=== PATIENT | female | born 1990 | race Caucasian/White ===

== ENCOUNTER 2018-01-26 15:28 | Emergency (ER) | payer OTHER, MEDICAID, SELFPAY ==
[2018-01-26 15:29] VITALS: BP 112/67; PULSE 97; RESP 20; TEMP 36.1; O2SAT 97; BMI 24.4
--- NOTE | 2018-01-26 16:02 | ED.BACK ---
HPI - Back Pain/Injury <SYDNIE Calixto - Last Filed: 01/26/18 22:29> General Chief Complaint: Back Pain/Injury Stated Complaint: RIGHT SIDE PAIN Time Seen by Provider: 01/26/18 15:36 Source: patient Mode of arrival: ambulatory Limitations: no limitations History of Present Illness HPI Narrative: Healthy 27-year-old female that is a nonsmoker here for complaint of having pain into her right ribcage area over the past several days. She was seen at [facility] emergency room a few days ago with a negative workup That included ultrasound to the right upper quadrant. She reports she is still having pain into the area. Positive p.o. intake. No nausea vomiting. No urinary symptoms. No fevers no chills. She does report that she did have a ground level fall and he approximately 5-6 days ago where she did land on the right lateral ribcage. She denies any chest pain or shortness of breath. Related Data Home Medications Medication Instructions Recorded Confirmed fluoxetine 20 mg PO DAILY 01/26/18 01/26/18 ranitidine HCl 150 mg PO BID 01/26/18 01/26/18 Allergies Allergy/AdvReac Type Severity Reaction Status Date / Time barley [BARLEY] Allergy Intermediate Unverified 08/16/17 12:20 wheat [WHEAT] Allergy Intermediate Unverified 08/16/17 12:20 RYE Allergy Intermediate Uncoded 08/16/17 12:20 Review of Systems <SYDNIE Calixto - Last Filed: 01/26/18 22:29> Review of Systems All systems reviewed & are unremarkable except as noted in HPI and below Constitutional Denies chills, Denies fever(s), Denies lethargy and Denies weakness Eyes Denies change in vision, Denies eye discharge, Denies irritation and Denies loss of vision ENT Ears, Nose, Mouth, and Throat: Denies change in voice, Denies neck pain and Denies sore throat Cardiovascular Denies chest pain, Denies irregular heart rhythm, Denies lightheadedness, Denies palpitations, Denies dyspnea, Denies dyspnea on exertion and Denies orthopnea Respiratory Denies cough, Denies dyspnea, Denies dyspnea on exertion and Denies wheezing Gastrointestinal Gastrointestinal: Denies abdominal pain, Denies change in bowel habits, Denies diarrhea, Denies nausea and Denies vomiting Genitourinary Denies hematuria, Denies flank pain, Denies urinary incontinence and Denies urinary urgency Musculoskeletal Denies neck pain Comments: Pain to right lateral ribcage Integumentary/Breasts Denies pruritus, Denies erythema, Denies rash and Denies wounds Neurologic Denies confusion, Denies loss of vision and Denies weakness Psychiatric Denies anxiety, Denies confusion, Denies depression, Denies homicidal ideation and Denies suicidal ideation Endocrine Denies palpitations Hematologic/Lymphatic Denies easy bruising Allergic/Immunologic Denies wheezing Exam <SYDNIE Calixto - Last Filed: 01/26/18 22:29> Initial Vital Signs Initial Vital Signs: Vital Signs Temperature 97.0 F L 01/26/18 15:29 Pulse Rate 97 H 01/26/18 15:29 Respiratory Rate 20 01/26/18 15:29 Blood Pressure 112/67 01/26/18 15:29 Pulse Oximetry 97 01/26/18 15:29 Const General: cooperative and well developed Nutritional Appearance: well nourished Orientation: alert, awake, oriented x3 and not confused HENMT Mouth: oral mucosae normal and oropharynx normal Eyes Conjunctivae: conjunctivae normal Sclera: sclerae normal Pupils: PERRL EOM: EOM intact bilaterally Resp Effort & Inspection: normal respiratory effort, able to speak in complete sentences, no respiratory distress and no use of accessory muscles Auscultation: clear to auscultation bilaterally, no rales, no rhonchi and no wheezes Cardio Rate: regular rate Rhythm: regular rhythm Heart Sounds: no click, no gallops, no murmurs and no rubs Pulses: normal peripheral pulses Other: right lateral ribcage with no signs of trauma. No ecchymosis no swelling no open lesions. No deformities. Tenderness to palpation to the right lateral ribcage Skin General: no rashes or lesions noted, No jaundice and No petechiae Neuro General: alert, oriented x3, gait normal and no focal motor deficits Speech: speech normal <Zay Carlin DO - Last Filed: 01/27/18 07:18> Initial Vital Signs Initial Vital Signs: Vital Signs Temperature 97.0 F L 01/26/18 15:29 Pulse Rate 97 H 01/26/18 15:29 Respiratory Rate 20 01/26/18 15:29 Blood Pressure 112/67 01/26/18 15:29 Pulse Oximetry 97 01/26/18 15:29 Course <SYDNIE Calixto - Last Filed: 01/26/18 22:29> Orders Ordered: ED Orders 01/26/18 16:02 XR ribs RT min 3V w CXR1V Stat 01/26/18 16:23 Complete Blood Count AUTO DIFF Stat Comprehensive Metabolic Panel Stat Lipase Stat Vital Signs - 8 hr 01/26/18 15:29 01/26/18 17:18 Temperature 97.0 F L Pulse Rate 97 H 67 Respiratory Rate 20 16 Blood Pressure 112/67 105/73 Pulse Oximetry 97 99 <Zay Carlin DO - Last Filed: 01/27/18 07:18> Orders Ordered: ED Orders 01/26/18 16:02 XR ribs RT min 3V w CXR1V Stat 01/26/18 16:23 Complete Blood Count AUTO DIFF Stat Comprehensive Metabolic Panel Stat Lipase Stat Vital Signs - 8 hr 01/26/18 15:29 01/26/18 17:18 Temperature 97.0 F L Pulse Rate 97 H 67 Respiratory Rate 20 16 Blood Pressure 112/67 105/73 Pulse Oximetry 97 99 MDM - Back Pain/Injury <SYDNIE Calixto - Last Filed: 01/26/18 22:29> Lab Data Result diagrams: 01/26/18 16:23 01/26/18 16:23 Lab Results 01/26/18 01/26/18 Range/Units 16:23 16:23 WBC 5.6 (4.5-11.0) X10^3/uL RBC 4.64 (4.0-5.2) X10^6/uL Hgb 13.5 (12.0-16.0) g/dL Hct 39.8 (36-46) % MCV 85.8 (80-100) fL MCH 29.2 (26-34) PG MCHC 34.0 (30-36) % RDW 16.0 H (11.6-14.8) % Plt Count 195 (150-400) X10^3/uL Neut % (Auto) 54.8 (50-75) % Lymph % (Auto) 33.6 (25-40) % [place] % (Auto) 9.7 (3-14) % Eos % (Auto) 1.4 L (2-4) % Baso % (Auto) 0.5 (0-2) % Neut # (Auto) 3000 (0059-5890) /uL Sodium 144 (137-145) mmol/L Potassium 4.0 (3.4-5.1) mmol/L Chloride 104 (98-107) mmol/L Carbon Dioxide 29 (22-32) mmol/L BUN 17 (7-17) mg/dL Creatinine 0.80 (0.52-1.04) mg/dL Estimated GFR > 60.0 (>60) mL/min BUN/Creatinine Ratio 21.3 (6-22) Glucose 98 (70-100) mg/dL Calcium 9.1 (8.4-10.2) mg/dL Total Bilirubin 0.2 (0.2-1.3) mg/dL AST 110 H (14-36) IU/L ALT 383 H (9-52) IU/L Alkaline Phosphatase 119 (38-126) U/L Total Protein 7.3 (6.3-8.2) g/dL Albumin 4.4 (3.5-5.0) g/dL Globulin 2.9 (1.7-4.1) g/dL Albumin/Globulin Ratio 1.5 (1.0-2.8) Lipase 54 (23-300) U/L Urine Dip Bedside Urine Glucose Negative Bedside Urine Bilirubin - Negative Bedside Urine Ketone - Negative Urine Specific [place] 1.025 Bedside Urine Occult Blood - Negative Bedside Urine pH 6.0 Bedside Urine Protein - Negative Bedside Urine Urobilinogen - Negative Bedside Urine Nitrite - Negative Bedside Urine Leukocytes - Negative Esterase ECG Data Interpretation: [address] [address] XRay Report Signed Patient: Anjana Drake LMR#: [id number] : 1990Acct:[id number] Age/Sex: 27 / FDate of Service: 01/26/18 Loc: ED Accession Number: [id number] Procedure: XR ribs RT min 3V w CXR1V Ordering Provider: Rancho Kennedy PROCEDURE: XR RIBS RT MIN 3V W CXR 1V INDICATIONS: pain into right side right lateral ribcage TECHNIQUE: 3 views of the right ribs were acquired, along with a single view chest. COMPARISON: None. FINDINGS: Surgical changes and devices: None. Bones and chest wall: No fractures or dislocations. No suspicious bony lesions. Overlying soft tissues appear unremarkable. Lungs and pleura: No pleural effusions or pneumothorax. Lungs appear clear. Mediastinum: Mediastinal contours appear normal. Heart size is normal. IMPRESSION: No visualized acute fracture or dislocation. However, if clinical concern and/or pain persist, short interval imaging followup in 7-10 days is recommended, as occult injury cannot be definitively excluded. Dictated by: Elsa Aguirre M.D. on 01/26/2018 at 16:22 Approved by: Elsa Aguirre M.D. on 01/26/2018 at 16:23 MDM Narrative Medical decision making narrative: CBC Chem panel and lipase were obtained were unremarkable. Urinalysis was negative for urinary tract infection or . X-ray of the right ribcage was obtained was negative for any fractures. Signs symptoms presents as contusion to the right ribcage status post ground level fall. [id number] Tylenol/ Motrin as needed for any discomfort. Follow up with primary care provider. Return emergency room for any worsening symptoms. <Zay Carlin, DO - Last Filed: 01/27/18 07:18> Lab Data Lab Results 01/26/18 01/26/18 Range/Units 16:23 16:23 WBC 5.6 (4.5-11.0) X10^3/uL RBC 4.64 (4.0-5.2) X10^6/uL Hgb 13.5 (12.0-16.0) g/dL Hct 39.8 (36-46) % MCV 85.8 (80-100) fL MCH 29.2 (26-34) PG MCHC 34.0 (30-36) % RDW 16.0 H (11.6-14.8) % Plt Count 195 (150-400) X10^3/uL Neut % (Auto) 54.8 (50-75) % Lymph % (Auto) 33.6 (25-40) % [place] % (Auto) 9.7 (3-14) % Eos % (Auto) 1.4 L (2-4) % Baso % (Auto) 0.5 (0-2) % Neut # (Auto) 3000 (9769-1355) /uL Sodium 144 (137-145) mmol/L Potassium 4.0 (3.4-5.1) mmol/L Chloride 104 (98-107) mmol/L Carbon Dioxide 29 (22-32) mmol/L BUN 17 (7-17) mg/dL Creatinine 0.80 (0.52-1.04) mg/dL Estimated GFR > 60.0 (>60) mL/min BUN/Creatinine Ratio 21.3 (6-22) Glucose 98 (70-100) mg/dL Calcium 9.1 (8.4-10.2) mg/dL Total Bilirubin 0.2 (0.2-1.3) mg/dL AST 110 H (14-36) IU/L ALT 383 H (9-52) IU/L Alkaline Phosphatase 119 (38-126) U/L Total Protein 7.3 (6.3-8.2) g/dL Albumin 4.4 (3.5-5.0) g/dL Globulin 2.9 (1.7-4.1) g/dL Albumin/Globulin Ratio 1.5 (1.0-2.8) Lipase 54 (23-300) U/L Urine Dip Bedside Urine Glucose Negative Bedside Urine Bilirubin - Negative Bedside Urine Ketone - Negative Urine Specific [place] 1.025 Bedside Urine Occult Blood - Negative Bedside Urine pH 6.0 Bedside Urine Protein - Negative Bedside Urine Urobilinogen - Negative Bedside Urine Nitrite - Negative Bedside Urine Leukocytes - Negative Esterase Discharge Plan Departure Patient Disposition: Home Clinical Impression: Contusion of rib on right side Discharge Date/Time: 01/26/18 17:19 Interventions: ED Discharge Assessment Last Done: 01/26/18 17:18 Instructions: DI for Rib Contusion Activity Restrictions/Additional Instructions: laboratory results today were unremarkable. X-ray of the right ribcage in chest was negative for any acute fractures. Signs and symptoms presents as a bruise to the right ribcage status post ground level fall. use [id number] Tylenol or Motrin as needed for any discomfort. Rest area. Follow up with her primary care provider next week. For any worsening symptoms return emergency room. Prescriptions: No Action ranitidine HCl 150 mg tablet 150 mg PO BID RF: 0 fluoxetine 20 mg capsule 20 mg PO DAILY RF: 0 Referrals: Heydi Holden MD [Primary Care Provider] - <Zay Carlin DO - Last Filed: 01/27/18 07:18> Cosign ED Attending Cosignature Attestation: I was immediately available in the department for consultation. Documentation has been reviewed. I agree with assessment and plan.
[2018-01-26 16:28] LABS: Add Manual Diff / Slide Review NO; Basophils Percent Auto 0.5 % (0-2); Eosinophils Percent Auto 1.4 % (2-4); Hematocrit 39.8 % (36-46); Hemoglobin 13.5 g/dL (12.0-16.0); Lymphocytes Percent Auto 33.6 % (25-40); Mean Corpuscular Hemoglobin 29.2 PG (26-34); Mean Corpuscular Volume 85.8 fL (80-100); Monocytes Percent Auto 9.7 % (3-14); Neutrophils Absolute Auto 3000 /uL (3000-5900); Neutrophils Percent Auto 54.8 % (50-75); Platelet Count 195 X10^3/uL (150-400); Red Blood Cell Count 4.64 X10^6/uL (4.0-5.2); White Blood Cell Count 5.6 X10^3/uL (4.5-11.0)
[2018-01-26 16:41] LABS: Alanine Aminotransferase 383 IU/L (9-52); Albumin 4.4 g/dL (3.5-5.0); Albumin Globulin Ratio 1.5 (1.0-2.8); Alkaline Phosphatase 119 U/L (38-126); Aspartate Aminotransferase 110 IU/L (14-36); BUN Creatinine Ratio 21.3 (6-22); Bilirubin Total 0.2 mg/dL (0.2-1.3); Blood Urea Nitrogen 17 mg/dL (7-17); Calcium 9.1 mg/dL (8.4-10.2); Carbon Dioxide 29 mmol/L (22-32); Chloride 104 mmol/L (98-107); Estimated Glomerular Filt Rate > 60.0 mL/min (>60); Globulin 2.9 g/dL (1.7-4.1); Glucose 98 mg/dL (70-100); HEMOLYSIS < 15 (0-50); Lipase 54 U/L (23-300); Sodium 144 mmol/L (137-145); Total Protein 7.3 g/dL (6.3-8.2)
--- NOTE | 2018-01-26 16:43 | ED_ITS ---
HPI - Back Pain/Injury <SYDNIE Calixto - Last Filed: 01/26/18 22:29> General Chief Complaint: Back Pain/Injury Stated Complaint: RIGHT SIDE PAIN Time Seen by Provider: 01/26/18 15:36 Source: patient Mode of arrival: ambulatory Limitations: no limitations History of Present Illness HPI Narrative: Healthy 27-year-old female that is a nonsmoker here for complaint of having pain into her right ribcage area over the past several days. She was seen at [facility] emergency room a few days ago with a negative workup That included ultrasound to the right upper quadrant. She reports she is still having pain into the area. Positive p.o. intake. No nausea vomiting. No urinary symptoms. No fevers no chills. She does report that she did have a ground level fall and he approximately 5-6 days ago where she did land on the right lateral ribcage. She denies any chest pain or shortness of breath. Related Data Home Medications Medication Instructions Recorded Confirmed fluoxetine 20 mg PO DAILY 01/26/18 01/26/18 ranitidine HCl 150 mg PO BID 01/26/18 01/26/18 Allergies Allergy/AdvReac Type Severity Reaction Status Date / Time barley [BARLEY] Allergy Intermediate Unverified 08/16/17 12:20 wheat [WHEAT] Allergy Intermediate Unverified 08/16/17 12:20 RYE Allergy Intermediate Uncoded 08/16/17 12:20 Review of Systems <SYDNIE Calixto - Last Filed: 01/26/18 22:29> Review of Systems All systems reviewed & are unremarkable except as noted in HPI and below Constitutional Denies chills, Denies fever(s), Denies lethargy and Denies weakness Eyes Denies change in vision, Denies eye discharge, Denies irritation and Denies loss of vision ENT Ears, Nose, Mouth, and Throat: Denies change in voice, Denies neck pain and Denies sore throat Cardiovascular Denies chest pain, Denies irregular heart rhythm, Denies lightheadedness, Denies palpitations, Denies dyspnea, Denies dyspnea on exertion and Denies orthopnea Respiratory Denies cough, Denies dyspnea, Denies dyspnea on exertion and Denies wheezing Gastrointestinal Gastrointestinal: Denies abdominal pain, Denies change in bowel habits, Denies diarrhea, Denies nausea and Denies vomiting Genitourinary Denies hematuria, Denies flank pain, Denies urinary incontinence and Denies urinary urgency Musculoskeletal Denies neck pain Comments: Pain to right lateral ribcage Integumentary/Breasts Denies pruritus, Denies erythema, Denies rash and Denies wounds Neurologic Denies confusion, Denies loss of vision and Denies weakness Psychiatric Denies anxiety, Denies confusion, Denies depression, Denies homicidal ideation and Denies suicidal ideation Endocrine Denies palpitations Hematologic/Lymphatic Denies easy bruising Allergic/Immunologic Denies wheezing Exam <SYDNIE Calixto - Last Filed: 01/26/18 22:29> Initial Vital Signs Initial Vital Signs: Vital Signs Temperature 97.0 F L 01/26/18 15:29 Pulse Rate 97 H 01/26/18 15:29 Respiratory Rate 20 01/26/18 15:29 Blood Pressure 112/67 01/26/18 15:29 Pulse Oximetry 97 01/26/18 15:29 Const General: cooperative and well developed Nutritional Appearance: well nourished Orientation: alert, awake, oriented x3 and not confused HENMT Mouth: oral mucosae normal and oropharynx normal Eyes Conjunctivae: conjunctivae normal Sclera: sclerae normal Pupils: PERRL EOM: EOM intact bilaterally Resp Effort & Inspection: normal respiratory effort, able to speak in complete sentences, no respiratory distress and no use of accessory muscles Auscultation: clear to auscultation bilaterally, no rales, no rhonchi and no wheezes Cardio Rate: regular rate Rhythm: regular rhythm Heart Sounds: no click, no gallops, no murmurs and no rubs Pulses: normal peripheral pulses Other: right lateral ribcage with no signs of trauma. No ecchymosis no swelling no open lesions. No deformities. Tenderness to palpation to the right lateral ribcage Skin General: no rashes or lesions noted, No jaundice and No petechiae Neuro General: alert, oriented x3, gait normal and no focal motor deficits Speech: speech normal <Zay Carlin DO - Last Filed: 01/27/18 07:18> Initial Vital Signs Initial Vital Signs: Vital Signs Temperature 97.0 F L 01/26/18 15:29 Pulse Rate 97 H 01/26/18 15:29 Respiratory Rate 20 01/26/18 15:29 Blood Pressure 112/67 01/26/18 15:29 Pulse Oximetry 97 01/26/18 15:29 Course <SYDNIE Calixto - Last Filed: 01/26/18 22:29> Orders Ordered: ED Orders 01/26/18 16:02 XR ribs RT min 3V w CXR1V Stat 01/26/18 16:23 Complete Blood Count AUTO DIFF Stat Comprehensive Metabolic Panel Stat Lipase Stat Vital Signs - 8 hr 01/26/18 15:29 01/26/18 17:18 Temperature 97.0 F L Pulse Rate 97 H 67 Respiratory Rate 20 16 Blood Pressure 112/67 105/73 Pulse Oximetry 97 99 <Zay Carlin DO - Last Filed: 01/27/18 07:18> Orders Ordered: ED Orders 01/26/18 16:02 XR ribs RT min 3V w CXR1V Stat 01/26/18 16:23 Complete Blood Count AUTO DIFF Stat Comprehensive Metabolic Panel Stat Lipase Stat Vital Signs - 8 hr 01/26/18 15:29 01/26/18 17:18 Temperature 97.0 F L Pulse Rate 97 H 67 Respiratory Rate 20 16 Blood Pressure 112/67 105/73 Pulse Oximetry 97 99 MDM - Back Pain/Injury <SYDNIE Calixto - Last Filed: 01/26/18 22:29> Lab Data Result diagrams: 01/26/18 16:23 01/26/18 16:23 Lab Results 01/26/18 01/26/18 Range/Units 16:23 16:23 WBC 5.6 (4.5-11.0) X10^3/uL RBC 4.64 (4.0-5.2) X10^6/uL Hgb 13.5 (12.0-16.0) g/dL Hct 39.8 (36-46) % MCV 85.8 (80-100) fL MCH 29.2 (26-34) PG MCHC 34.0 (30-36) % RDW 16.0 H (11.6-14.8) % Plt Count 195 (150-400) X10^3/uL Neut % (Auto) 54.8 (50-75) % Lymph % (Auto) 33.6 (25-40) % [place] % (Auto) 9.7 (3-14) % Eos % (Auto) 1.4 L (2-4) % Baso % (Auto) 0.5 (0-2) % Neut # (Auto) 3000 (0133-2373) /uL Sodium 144 (137-145) mmol/L Potassium 4.0 (3.4-5.1) mmol/L Chloride 104 (98-107) mmol/L Carbon Dioxide 29 (22-32) mmol/L BUN 17 (7-17) mg/dL Creatinine 0.80 (0.52-1.04) mg/dL Estimated GFR > 60.0 (>60) mL/min BUN/Creatinine Ratio 21.3 (6-22) Glucose 98 (70-100) mg/dL Calcium 9.1 (8.4-10.2) mg/dL Total Bilirubin 0.2 (0.2-1.3) mg/dL AST 110 H (14-36) IU/L ALT 383 H (9-52) IU/L Alkaline Phosphatase 119 (38-126) U/L Total Protein 7.3 (6.3-8.2) g/dL Albumin 4.4 (3.5-5.0) g/dL Globulin 2.9 (1.7-4.1) g/dL Albumin/Globulin Ratio 1.5 (1.0-2.8) Lipase 54 (23-300) U/L Urine Dip Bedside Urine Glucose Negative Bedside Urine Bilirubin - Negative Bedside Urine Ketone - Negative Urine Specific [place] 1.025 Bedside Urine Occult Blood - Negative Bedside Urine pH 6.0 Bedside Urine Protein - Negative Bedside Urine Urobilinogen - Negative Bedside Urine Nitrite - Negative Bedside Urine Leukocytes - Negative Esterase ECG Data Interpretation: [address] [address] XRay Report Signed Patient: Anjana Drake LMR#: [id number] : 1990Acct:[id number] Age/Sex: 27 / FDate of Service: 01/26/18 Loc: ED Accession Number: [id number] Procedure: XR ribs RT min 3V w CXR1V Ordering Provider: Rancho Kennedy PROCEDURE: XR RIBS RT MIN 3V W CXR 1V INDICATIONS: pain into right side right lateral ribcage TECHNIQUE: 3 views of the right ribs were acquired, along with a single view chest. COMPARISON: None. FINDINGS: Surgical changes and devices: None. Bones and chest wall: No fractures or dislocations. No suspicious bony lesions. Overlying soft tissues appear unremarkable. Lungs and pleura: No pleural effusions or pneumothorax. Lungs appear clear. Mediastinum: Mediastinal contours appear normal. Heart size is normal. IMPRESSION: No visualized acute fracture or dislocation. However, if clinical concern and/or pain persist, short interval imaging followup in 7-10 days is recommended , as occult injury cannot be definitively excluded. Dictated by: Elsa Aguirre M.D. on 01/26/2018 at 16:22 Approved by: Elsa Aguirre M.D. on 01/26/2018 at 16:23 MDM Narrative Medical decision making narrative: CBC Chem panel and lipase were obtained were unremarkable. Urinalysis was negative for urinary tract infection or . X-ray of the right ribcage was obtained was negative for any fractures. Signs symptoms presents as contusion to the right ribcage status post ground level fall. [id number] Tylenol/ Motrin as needed for any discomfort. Follow up with primary care provider. Return emergency room for any worsening symptoms. <Zay Carlin, DO - Last Filed: 01/27/18 07:18> Lab Data Lab Results 01/26/18 01/26/18 Range/Units 16:23 16:23 WBC 5.6 (4.5-11.0) X10^3/uL RBC 4.64 (4.0-5.2) X10^6/uL Hgb 13.5 (12.0-16.0) g/dL Hct 39.8 (36-46) % MCV 85.8 (80-100) fL MCH 29.2 (26-34) PG MCHC 34.0 (30-36) % RDW 16.0 H (11.6-14.8) % Plt Count 195 (150-400) X10^3/uL Neut % (Auto) 54.8 (50-75) % Lymph % (Auto) 33.6 (25-40) % [place] % (Auto) 9.7 (3-14) % Eos % (Auto) 1.4 L (2-4) % Baso % (Auto) 0.5 (0-2) % Neut # (Auto) 3000 (0510-9244) /uL Sodium 144 (137-145) mmol/L Potassium 4.0 (3.4-5.1) mmol/L Chloride 104 (98-107) mmol/L Carbon Dioxide 29 (22-32) mmol/L BUN 17 (7-17) mg/dL Creatinine 0.80 (0.52-1.04) mg/dL Estimated GFR > 60.0 (>60) mL/min BUN/Creatinine Ratio 21.3 (6-22) Glucose 98 (70-100) mg/dL Calcium 9.1 (8.4-10.2) mg/dL Total Bilirubin 0.2 (0.2-1.3) mg/dL AST 110 H (14-36) IU/L ALT 383 H (9-52) IU/L Alkaline Phosphatase 119 (38-126) U/L Total Protein 7.3 (6.3-8.2) g/dL Albumin 4.4 (3.5-5.0) g/dL Globulin 2.9 (1.7-4.1) g/dL Albumin/Globulin Ratio 1.5 (1.0-2.8) Lipase 54 (23-300) U/L Urine Dip Bedside Urine Glucose Negative Bedside Urine Bilirubin - Negative Bedside Urine Ketone - Negative Urine Specific [place] 1.025 Bedside Urine Occult Blood - Negative Bedside Urine pH 6.0 Bedside Urine Protein - Negative Bedside Urine Urobilinogen - Negative Bedside Urine Nitrite - Negative Bedside Urine Leukocytes - Negative Esterase Discharge Plan Departure Patient Disposition: Home Clinical Impression: Contusion of rib on right side Discharge Date/Time: 01/26/18 17:19 Interventions: ED Discharge Assessment Last Done: 01/26/18 17:18 Instructions: DI for Rib Contusion Activity Restrictions/Additional Instructions: laboratory results today were unremarkable. X-ray of the right ribcage in chest was negative for any acute fractures. Signs and symptoms presents as a bruise to the right ribcage status post ground level fall. use over-the- counter Tylenol or Motrin as needed for any discomfort. Rest area. Follow up with her primary care provider next week. For any worsening symptoms return emergency room. Prescriptions: No Action ranitidine HCl 150 mg tablet 150 mg PO BID RF: 0 fluoxetine 20 mg capsule 20 mg PO DAILY RF: 0 Referrals: Heydi Holden MD [Primary Care Provider] - <Zay Carlin DO - Last Filed: 01/27/18 07:18> Cosign ED Attending Cosignature Attestation: I was immediately available in the department for consultation. Documentation has been reviewed. I agree with assessment and plan.
[2018-01-26 17:18] VITALS: BP 105/73; PULSE 67; RESP 16; O2SAT 99
== END 2018-01-26 17:19 | disposition home or self-care (01) ==
PROVIDERS: Emergency Provider Nurse Practitioner Family; Family Provider Family Medicine; PCP Family Medicine
DX: S20.211A Contusion of right front wall of thorax, initial encounter (principal); W18.30XA Fall on same level, unspecified, initial encounter
CPT/HCPCS: 36415; 71101; 80053; 81003; 83690; 85025; 99282; 99284